=== PATIENT | female | born 1960 | race African-American/Black ===

== ENCOUNTER → 2018-01-18 | Day surgery (SDC) | payer OTHER ==
[~2018-01-18] VITALS: Ht 157.5 cm; Wt 59.9 kg
[~2018-01-18] MED LIST: AMLODIPINE BESYL5 M1 PO; ASPIRIN EC81 M1 PO; CHLORTHALIDONE25 M1 PO; METFORMIN HCL500 M3 PO; PRAVASTATIN SOD40 M2 PO
--- NOTE | 2018-01-18 16:40 | Operative Report ---
Operative/Inv Procedure Report Surgery Date: 01/18/18 Name of Procedure: Breast reduction Pre-Operative Diagnosis: Breast hypertrophy Post-Operative Diagnosis: Same Estimated Blood Loss: scant (150) Surgeon/Flat Sorting Machine Clerk: Rodolfo You MD Anesthesia: general endotracheal tube Operative/Procedure Note Note: She was counseled extensively regards the procedure the alternatives the risks and expected outcomes as relates to request to treat symptomatic bilateral breast hypertrophy. She was given and a SPS informed consents which she has returned sign has no questions regarding it today. Patient was told no guarantees in regards to cup side but she would prefer to be small. No guarantees in regards to what small segment but that I would be very reasonable amount of pedicle is marked in the standing position for an inferior pedicle Ferreira pattern technique. She signed informed consent was taken to the operative placed supine on the table. Venodyne boots were placed general anesthesia was established intravenous antibiotics were given. The patient was carried out of approximately 8 cm pedicle. Superior medial and lateral segments were removed after elevating skin flap. She was temporarily closed put in the sitting position found to be fairly symmetric and approximate 740 g per side and the nipple areola complex was then located. 3 layer closure was carried out of all the wounds. No ischemia was identified
== END ==
LOC: STS 00:59
DX: N62 Hypertrophy of breast (principal); M54.6 Pain in thoracic spine; E11.9 Type 2 diabetes mellitus without complications; Z79.84 Long term (current) use of oral hypoglycemic drugs; E83.52 Hypercalcemia
CPT/HCPCS: 93005; J0131; J2250; Q9968